=== PATIENT | female | born 1950 | race Caucasian/White ===

== ENCOUNTER 2022-12-10 05:20 | Day surgery (SDC) | payer MEDICARE, MEDICAID ==
[2022-12-03 14:18] LABS: BASOPHILS % (AUTO) 0.7 % (0-1); EOSINOPHILS # (AUTO) 0.2 X10'3 (0-0.9); EOSINOPHILS % (AUTO) 3.5 % (0-6); LYMPHOCYTES # (AUTO) 1.5 X10'3 (1.1-4.8); LYMPHOCYTES % (AUTO) 32.3 % (21-51); MEAN CORPUSCULAR HEMOGLOBIN 29.9 PG (27.0-31.0); MEAN CORPUSCULAR HGB CONC 32.5 g/dL (33.0-36.5); MEAN CORPUSCULAR VOLUME 92.1 FL (78-98); MEAN PLATELET VOLUME 8.1 FL (7.4-10.4); MONOCYTES # (AUTO) 0.4 X10'3 (0-0.9); NEUTROPHILS # (AUTO) 2.6 X10'3 (1.8-7.7); NEUTROPHILS % (AUTO) 54.5 % (42-75); PRE OP HEMATOCRIT 38.9 % (35.0-45.0); PRE OP HEMOGLOBIN 12.7 g/dL (12.0-16.0); PRE OP PLATELET COUNT 225 X10'3 (140-440); RED BLOOD COUNT 4.23 X10'6 (4.20-5.60); RED CELL DISTRIBUTION WIDTH 13.9 % (11.5-14.5)
[2022-12-03 14:26] LABS: ALBUMIN 3.9 G/DL (3.4-5.0); ALBUMIN/GLOBULIN RATIO 1.1 (1.1-1.5); ALKALINE PHOSPHATASE 117 IU/L (46-116); BLOOD UREA NITROGEN 42 MG/DL (7-18); BUN/CREATININE RATIO 21.9 (6.6-38.0); CALCIUM 9.6 MG/DL (8.5-10.1); CHLORIDE 106 MMOL/L (99-107); CREATININE 1.92 MG/DL (0.40-0.90); PRE OP ALT 13 U/L (30-65); PRE OP ANION GAP 4 (8-16); PRE OP AST 12 U/L (10-37); PRE OP BILIRUB, TOTAL 0.5 MG/DL (0.0-1.0); PRE OP GLUCOSE 101 MG/DL (70-104); PRE OP POTASSIUM 4.5 MMOL/L (3.4-5.1); PRE OP SODIUM 140 MMOL/L (135-145); TOTAL PROTEIN 7.6 G/DL (6.4-8.2); eGFR 26 ML/MIN
[~2022-12-10] VITALS: Ht 157.5 cm; Wt 90.7 kg
[2022-12-10] VITALS (17 sets, daily range): BP systolic 89–115; BP diastolic 53–81
[~2022-12-10 05:20] MED LIST: ALBU18HF2 INH; ASCO-139 PO; ATRIN INH; BACL10TA2 PO; CALC250T2 PO; CYAN50009 PO; DOCU100C40 PO; DOXE25CA3 PO; FURO40TA4 PO; GABA300C PO; HYDR-3973 PO; MAGN400T39 PO; MELO-102 PO; MORP-92 PO; OMEGA 3 PO; OMEP40CA21 PO; POTA8CAP20 PO; SENN-25 PO; UBID200C18 PO; [UNRECOGNIZED DRUG - OTHER] PO
[2022-12-10] MEDS ORDERED: normal saline 1000ml 1,000 ML IV SCH (05:30)
[2022-12-10] MEDS ORDERED: ceFAZolin inj. 2,000 MG in dextrose 5%-water 100 ML IV ONE (05:30)
[2022-12-10] MEDS ORDERED: famotidine 20mg tablet PO ONE (05:30)
[2022-12-10] MEDS ORDERED: albuterol 2.5 MG/3 ML nebule NEB PRN (05:30)
[2022-12-10] MEDS ORDERED: BUPIVAcaine/PF 5 mg/ml 10ml ONE (06:41)
[2022-12-10] MEDS ORDERED: morphine 2 MG/ML inj. syringe IV PRN (07:15)
[2022-12-10] MEDS ORDERED: proCHLORperazine 10 MG/2 ml inj IV PRN (07:15)
[2022-12-10] MEDS ORDERED: morphine 4 MG/ML inj SYRINge IV PRN (07:15)
[2022-12-10] MEDS ORDERED: ondansetron/PF 4mg/2ml inj IV PRN (07:15)
[2022-12-10] MEDS ORDERED: ringers solution, lacted 1,000 ML IV SCH (07:15)
[2022-12-10] MEDS ORDERED: meperidine/PF 25mg/ml syringe IV PRN ×3 (07:15)
[2022-12-10] MEDS ORDERED: acetaminophen 1,000mg/100ml IV 100 ML IV PRN (07:15)
[2022-12-10] MEDS ORDERED: labetalol 20mg/4ml (5mg/ml) syringe IV PRN (07:15)
[2022-12-10] MEDS ORDERED: hydrALAZINE 20mg/ml inj. IV PRN (07:15)
[2022-12-10] MEDS ORDERED: LIDOcaine 0.5% (5mg/ml) 50ml vial ONE (07:18)
[2022-12-10] MEDS ORDERED: fentaNYL/PF 50MCG/1 ML 2ML syringe ONE (07:19)
[2022-12-10] MEDS ORDERED: midazolam 1 mg/ML 2ml injection ONE (07:26)
[2022-12-10] MEDS ORDERED: propofol inj 20 ML IV ONE (07:40)
--- NOTE | 2022-12-10 07:50 | NUR ---
Received from OR via , accompanied by Anesthesiologist and report given by Anesthesiolgist. PATIENT WAKING UP DENIES PAIN , V/S WNL, [facility]SM INTACT, RIGHT WRIST DRESSING CDI.
[2022-12-10] MEDS ORDERED: HYDROcodone/acetaminophen 10/325mg tab PO STA (09:41)
--- NOTE | 2022-12-10 10:40 | NUR ---
PATIENT DISCHARGED FROM PACU IN STABLE CONDITION AFTER WRITTEN AND VERBAL DISCHARGE INSTUCTIONS GIVEN. PATIENT GAVE VERBAL UNDERSTANDING OF INSTRUCTIONS. PATIENT LEFT FACILITY VIA WHEELCHAIR WITH VOLUNTEER. Addendum: 12/10/22 at 1051 by Jennifer Lugo RN Amended: Links added.
== END 2022-12-10 10:40 | disposition home or self-care (01) ==
LOC: PAS 05:20
PROVIDERS: ATTEND Orthopaedic Surgery Hand Surgery
DX: G56.01 Carpal tunnel syndrome, right upper limb (principal); M72.0 Palmar fascial fibromatosis [Dupuytren]; M65.331 Trigger finger, right middle finger; J44.9 Chronic obstructive pulmonary disease, unspecified; K21.9 Gastro-esophageal reflux disease without esophagitis; G89.29 Other chronic pain; E66.9 Obesity, unspecified; Z68.36 Body mass index [BMI] 36.0-36.9, adult; Z86.718 Personal history of other venous thrombosis and embolism; Z90.49 Acquired absence of other specified parts of digestive tract; Z96.653 Presence of artificial knee joint, bilateral; Z96.643 Presence of artificial hip joint, bilateral; Z98.890 Other specified postprocedural states; Z88.8 Allergy status to other drugs, medicaments and biological substances; Z91.09 Other allergy status, other than to drugs and biological substances; Z79.899 Other long term (current) drug therapy
CPT/HCPCS: 26055; 26121; 36415; 64721; 80053; 82948; 85025; 93005; J0131; J0690; J2175; J2250; J2270; J2704; J3010; J3490; J7030; J7040; J7060; J7120; Z7506; Z7512; A4215